=== PATIENT | female | born 1965 | race Caucasian/White ===

== ENCOUNTER → 2018-06-17 10:08 | Outpatient (CLI) | payer OTHER, SELFPAY ==
--- NOTE | 2018-06-17 | DI.MG.S_ITS ---
BILATERAL DIGITAL SCREENING MAMMOGRAM 3D/2D WITH CAD: 06/17/2018 CLINICAL: Routine screening. Family history of breast cancer. Comparison is made to exams dated: 11/27/2015 mammogram, 08/01/2014 mammogram, and 07/26/2014 mammogram - [facility]. The tissue of both breasts is predominantly fatty. Current study was also evaluated with a Computer Aided Detection (CAD) system. No significant masses, calcifications, or other findings are seen in either breast. There has been no significant interval change. IMPRESSION: NEGATIVE There is no mammographic evidence of malignancy. A 1 year screening mammogram is recommended. This exam was interpreted at Station ID: [id number]. NOTE: For mammograms, a report in lay terms will be sent to the patient. Approximately 15% of breast malignancies will not be visualized mammographically. In the management of a palpable breast mass, a negative mammogram must not discourage biopsy of a clinically suspicious lesion. Electronically Signed By: Steve morales/leo:06/17/2018 20:09:26 letter sent: Normal Exam ACR BI-RADS Category 1: Negative 3341F
[2018-06-17 12:19] LABS: Add Manual Diff / Slide Review NO; Basophils Percent Auto 0.1 % (0-2); Hematocrit 43.9 % (36-46); Hemoglobin 15.1 g/dL (12.0-16.0); Lymphocytes Percent Auto 38.2 % (25-40); Mean Corpuscular HGB Conc 34.3 % (30-36); Mean Corpuscular Hemoglobin 29.3 PG (26-34); Mean Corpuscular Volume 85.4 fL (80-100); Monocytes Percent Auto 6.7 % (3-14); Neutrophils Absolute Auto 2900 /uL (3000-5900); Platelet Count 177 X10^3/uL (150-400); Red Blood Cell Count 5.14 X10^6/uL (4.0-5.2); Red Cell Distribution Width 14.3 % (11.6-14.8); White Blood Cell Count 5.3 X10^3/uL (4.5-11.0)
[2018-06-17 17:18] LABS: Alanine Aminotransferase 75 IU/L (9-52); Albumin 4.3 g/dL (3.5-5.0); Albumin Globulin Ratio 1.5 (1.0-2.8); Alkaline Phosphatase 97 U/L (38-126); Aspartate Aminotransferase 55 IU/L (14-36); BUN Creatinine Ratio 22.9 (6-22); Bilirubin Total 0.6 mg/dL (0.2-1.3); Blood Urea Nitrogen 16 mg/dL (7-17); Calcium 9.1 mg/dL (8.4-10.2); Carbon Dioxide 26 mmol/L (22-32); Chloride 103 mmol/L (98-107); Cholesterol 197 mg/dL (140-199); Estimated Glomerular Filt Rate > 60.0 mL/min (>60); Globulin 2.8 g/dL (1.7-4.1); Glucose 106 mg/dL (70-100); HDL Cholesterol 64 mg/dL (40-60); HEMOLYSIS < 15 (0-50); LDL Cholesterol Calculated 112 mg/dL (<100); Potassium 4.4 mmol/L (3.4-5.1); Sodium 140 mmol/L (137-145); Total Protein 7.1 g/dL (6.3-8.2); Triglycerides 107 mg/dL (35-150)
== END ==
PROVIDERS: Family Provider Nurse Practitioner Family; PCP Nurse Practitioner Family; Visit Provider Nurse Practitioner Family
DX: Z12.31 Encounter for screening mammogram for malignant neoplasm of breast (principal); Z80.3 Family history of malignant neoplasm of breast; E78.00 Pure hypercholesterolemia, unspecified
CPT/HCPCS: 36415; 77063; 77067; 80053; 80061; 85025

== ENCOUNTER → 2019-10-26 15:38 | Outpatient (CLI) | payer OTHER, SELFPAY ==
--- NOTE | 2019-10-26 | DI.MG.S_ITS ---
BILATERAL DIGITAL SCREENING MAMMOGRAM 3D/2D WITH CAD: 10/26/2019 CLINICAL: Routine screening. Family history of breast cancer. Comparison is made to exams dated: 06/17/2018 mammogram - [facility], 11/27/2015 mammogram, and 08/01/2014 mammogram - [facility]. The tissue of both breasts is predominantly fatty. Current study was also evaluated with a Computer Aided Detection (CAD) system. There is an irregular low density focal asymmetry in the left breast at 4 o'clock anterior depth. No other significant masses, calcifications, or other findings are seen in either breast. IMPRESSION: INCOMPLETE: NEEDS ADDITIONAL IMAGING EVALUATION The irregular low density focal asymmetry in the left breast is indeterminate. Additional views with possible ultrasound are recommended. This exam was interpreted at Station ID: [id number]. NOTE: For mammograms, a report in lay terms will be sent to the patient. Approximately 15% of breast malignancies will not be visualized mammographically. In the management of a palpable breast mass, a negative mammogram must not discourage biopsy of a clinically suspicious lesion. Electronically Signed By: Yari becker/leo:10/26/2019 16:24:43 letter sent: Additional Imaging Needed ACR BI-RADS Category 0: Incomplete 3340F
== END ==
PROVIDERS: PCP Nurse Practitioner Family; Visit Provider Nurse Practitioner Family
DX: Z12.31 Encounter for screening mammogram for malignant neoplasm of breast (principal); Z80.3 Family history of malignant neoplasm of breast
CPT/HCPCS: 77063; 77067

== ENCOUNTER → 2019-11-19 07:51 | Outpatient (CLI) | payer OTHER, SELFPAY ==
--- NOTE | 2019-11-19 | DI.US.S_ITS ---
LIMITED ULTRASOUND OF LEFT BREAST: 11/19/2019 CLINICAL: Patient returns today to evaluate a focal asymmetry in the left breast. Comparison is made to exams dated: 11/19/2019 mammogram, 10/26/2019 mammogram, 06/17/2018 mammogram - [facility], 11/27/2015 mammogram, 07/26/2014 mammogram, and 05/05/2013 mammogram - [facility]. Color flow ultrasound of the left breast 2-5 o'clock region was performed. He scale images of the real-time examination were reviewed. No underlying breast mass or abnormality is identified. There is no ultrasound correlate for the previously identified irregular low density focal asymmetry in the left breast at 4 o'clock anterior depth on comparison screening mammograms of 10/26/19 which persisted but was less prominent with additional views performed earlier today 11/19/2019. IMPRESSION: PROBABLY BENIGN No ultrasound correlate for the irregular low density focal asymmetry in the left breast at 4 o'clock anterior depth seen on screening and diagnostic mammography. A follow-up mammogram and possible ultrasound in 6 months is recommended to demonstrate stability. These results and recommendations were discussed with the patient at the time of the exam by Dr. Carey by telephone. The patient was advised to monitor her breasts and to return sooner for re-evaluation should she feel anything grow or change. This exam was interpreted at Station ID: [id number]. Electronically Signed By: Steve Carey M.D. ecl/:11/19/2019 10:29:06 letter sent: Followup Recommended Ultrasound BI-RADS: 3 Probably benign
--- NOTE | 2019-11-19 | DI.MG.S_ITS ---
UNILATERAL LEFT DIGITAL DIAGNOSTIC MAMMOGRAM 3D/2D WITH ADDITIONAL VIEWS: 11/19/2019 CLINICAL: Additional evaluation requested from prior study. Comparison is made to exams dated: 07/26/2014 mammogram - [facility], 10/26/2019 mammogram, 06/17/2018 mammogram - [facility], and 11/27/2015 mammogram - [facility]. There are scattered fibroglandular elements in left breast. Previously identified irregular low density focal asymmetry in the left breast at 4 o'clock anterior depth on comparison screening mammograms of 10/26/19 persists but is less prominent with additional views. IMPRESSION: INCOMPLETE: NEEDS ADDITIONAL IMAGING EVALUATION Previously identified irregular low density focal asymmetry in the left breast at 4 o'clock anterior depth on comparison screening mammograms of 10/26/19 persists but is less prominent with additional views. A targeted ultrasound is recommended for further evaluation, and will be performed immediately following this exam. This exam was interpreted at Station ID: [id number]. NOTE: For mammograms, a report in lay terms will be sent to the patient. Approximately 15% of breast malignancies will not be visualized mammographically. In the management of a palpable breast mass, a negative mammogram must not discourage biopsy of a clinically suspicious lesion. Electronically Signed By: Steve Carey M.D. ecl/:11/19/2019 10:13:00 ACR BI-RADS Category 0: Incomplete 3340F
== END ==
PROVIDERS: PCP Nurse Practitioner Family; Visit Provider Nurse Practitioner Family
DX: R92.8 Other abnormal and inconclusive findings on diagnostic imaging of breast (principal); N64.89 Other specified disorders of breast
CPT/HCPCS: 76642; 77065; G0279

== ENCOUNTER → 2020-04-27 09:19 | Outpatient (CLI) | payer OTHER, SELFPAY ==
--- NOTE | 2020-04-27 09:21 | DI.MRI.S_ITS ---
PROCEDURE: MR LUMBAR SPINE WO CON INDICATIONS: right axial low back pain TECHNIQUE: Noncontrast sagittal T1 spin echo and T2 fast echo, sagittal STIR, axial T1 and T2 fast spin echo through the lumbar spine. In cases with scoliosis, additional coronal T2 fast spin echo may be performed. COMPARISON: None. FINDINGS: Image quality: Excellent. Alignment and Curvature: Trace anterolisthesis of L4 on L5. Bone Marrow: No fracture. Multilevel degenerative endplate sclerosis and spurring. Diffuse facet arthropathy. Spinal Cord: Conus medullaris terminates at the L1 level. Visualized cord demonstrates normal signal and size. Paraspinous Soft Tissues: No paravertebral masses. Subcentimeter poorly defined renal T2 hyperintensities, statistically small cysts, however technically too small to characterize accurately. L1-L2: Normal appearance. L2-L3: Normal appearance. L3-L4: Normal appearance. L4-L5: Mild dorsal epidural lipomatosis. Moderate canal stenosis. Partial effacement of both lateral recesses with bilaterally symmetric appearance. Minimal right foraminal narrowing. No left foraminal stenosis. L5-S1: Moderate canal narrowing in part due to circumferential epidural lipomatosis. Mild bilateral foraminal narrowing IMPRESSION: Lower lumbar spondylosis and facet arthropathy, with epidural lipomatosis at L4-L5 and L5-S1. No high-grade foraminal stenosis as above Trace anterolisthesis of L4 on L5. Dictated by: Jesse Triplett M.D. on 04/27/2020 at 12:03 Approved by: Jesse Triplett M.D. on 04/27/2020 at 12:09
== END ==
PROVIDERS: PCP Nurse Practitioner Family; Referring Provider Physical Medicine & Rehabilitation; Visit Provider Physical Medicine & Rehabilitation
DX: M54.5 Low back pain (principal); M47.27 Other spondylosis with radiculopathy, lumbosacral region; E88.2 Lipomatosis, not elsewhere classified
CPT/HCPCS: 72148

== ENCOUNTER → 2020-06-05 13:37 | Outpatient (CLI) | payer OTHER, SELFPAY ==
--- NOTE | 2020-06-05 | DI.MG.S_ITS ---
UNILATERAL LEFT DIGITAL DIAGNOSTIC MAMMOGRAM 3D/2D: 06/05/2020 CLINICAL: Patient returns for a 6 month follow up of the left breast. Comparison is made to exams dated: 11/19/2019 mammogram, 10/26/2019 mammogram, and 06/17/2018 mammogram - [facility]. The tissue of left breast is predominantly fatty. The previously described low density focal asymmetry in the left breast at 4 o'clock anterior depth appears less prominent and decreased in size. It was not seen on the prior ultrasound. No other significant masses or calcifications are seen in the breast. IMPRESSION: PROBABLY BENIGN The low density focal asymmetry in the left breast appears stable to less prominent and likely represents fibroglandular tissue. This is probably benign. A follow-up bilateral mammogram in 6 months is recommended to demonstrate stability. This exam was interpreted at Station ID: [id number]. NOTE: For mammograms, a report in lay terms will be sent to the patient. Approximately 15% of breast malignancies will not be visualized mammographically. In the management of a palpable breast mass, a negative mammogram must not discourage biopsy of a clinically suspicious lesion. Electronically Signed By: Edin garcia/:06/05/2020 14:21:29 letter sent: Followup Recommended ACR BI-RADS Category 3: Probably benign 3343F
== END ==
PROVIDERS: PCP Nurse Practitioner Family; Referring Provider Nurse Practitioner Family; Visit Provider Nurse Practitioner Family
DX: R92.8 Other abnormal and inconclusive findings on diagnostic imaging of breast (principal); N64.89 Other specified disorders of breast
CPT/HCPCS: 77065; G0279

== ENCOUNTER → 2020-06-17 10:22 | Outpatient (CLI) | payer OTHER, SELFPAY ==
[2020-06-19 21:02] LABS: COVID19 Sendout Not Detected (Not Detect)
== END ==
PROVIDERS: PCP Nurse Practitioner Family; Visit Provider Physician Assistant
DX: Z11.59 Encounter for screening for other viral diseases (principal)
CPT/HCPCS: 87635

== ENCOUNTER 2020-06-20 09:28 | Outpatient (CLI) | payer OTHER, SELFPAY ==
[2020-06-20] VITALS (7 sets, daily range): BP systolic 113–132; BP diastolic 81–93; PULSE 79–84; RESP 11–19; TEMP 36.7; O2SAT 94–99
--- NOTE | 2020-06-20 09:30 | DI.RAD.S_ITS ---
PROCEDURE: PAIN L/S FACET INJ/BLK 1ST LEWIS COMPARISON: [facility], MR, MR LUMBAR SPINE WO CON, 04/27/2020, 10:05. INDICATIONS: SPONDYLOSIS FINDINGS: On these intraprocedural images, spinal needles are seen at the L4-5 and L5-S1 levels on both sides, as labeled on the films. The appropriate location of the tips of the spinal needles is confirmed by injection of a small amount of iodinated contrast. IMPRESSION: Intraprocedural examination within normal limits. Dictated by: Miguel Vee M.D. on 06/20/2020 at 12:04 Approved by: Miguel Vee M.D. on 06/20/2020 at 12:05
[2020-06-20] MEDS: MIDAZOLAM 5 MG/5 ML VIAL IV (10:44)
[2020-06-20] MEDS: fentaNYL 100 MCG/2 ML INJ 50 MCG IV (10:45)
[2020-06-20] MEDS: BUPIVACAINE 0.5% (PF) VIAL 5 ML INJ (10:50)
[2020-06-20] MEDS: IOPAMIDOL 15 ML VIAL 3 ML INJ (10:50)
[2020-06-20] MEDS: BETAMETHASONE 30 MG/5 ML MDV 12 MG INJ (10:50)
[2020-06-20] MEDS: LIDOCAINE 1% 20 ML 10 ML INJ (10:50)
--- NOTE | 2020-06-20 10:59 | P.PCN_ITS ---
Date/Time/Diagnoses Date of procedure: 06/20/20 Time of procedure: 10:59 Pre-procedure diagnosis: 1. FACET ARTHROPATHY 2. AXIAL LBP 3. MULTILEVEL DDD Post-procedure diagnosis: same Procedure Notes Procedure: 1. FLUOROSCOPICALLY GUIDED CONTRAST CONTROLLED FACET JOINT INJECTIONS BILATERAL L4/5, L5/S1 Indications: Maria Antonia is referred by JAYDEN Epstein for treatment of Axial LBP Physician: Onofre Ventura Total Fluoroscopy time (seconds): 12 Total sedation minutes: 7 Complications: none Procedure in detail & Post-procedure care: FINDINGS Multilevel Facet Arthropathy with Clinically significant axial LBP DESCRIPTION OF PROCEDURE Fluoroscopically guided, contrast-controlled bilateral L4/5, L5/S1 facet joint injections. Following review of allergy and review of potential side effects and complications, including, but not necessarily limited to, infection, allergic reaction, local tissue breakdown, stroke, temporary or permanent nerve injury, paralysis, and possible , the patient indicated that the patient understood and agreed to proceed. An informed consent document was signed by the patient, witnessed by a nurse, and placed in the patient's chart. Additionally, other treatment options including medications, modalities, and physical therapy were reviewed with the patient. After review of previous anaesthesic history and IV conscious sedation the patient was deemed safe to proceed with today?s procedure with IV conscious sedation as ASA class II designation. Safety time-out was performed to confirm patient ID, procedure to be performed and site of procedure. IV sedation was accomplished with a combination of 5mg of Versed and 50mcg of Fentanyl was administered by the RN after DO order, titrated to patient comfort during the course of the procedure while the patient remained responsive to all verbal commands In the prone position, following sterile prep and drape of the lumbar region, the posterior aspect of the L4/5, L5/S1 facet joints were identified fluoroscopically. The skin was anesthetized via a 25-gauge 1.5-inch needle with 1% lidocaine solution into the corresponding facet joints. At this point, a 22- gauge 3.5-inch spinal needle was atraumatically introduced and advanced under fluoroscopic guidance into the corresponding facet joints. Following negative aspiration, injections of approximately 0.2cc of Isovue 200 confirmed int erarticular placement without vascular uptake. The identical procedure was then performed at the L4/5, L5/S1 facet joints on the left. Radiological data, including multiple fluoroscopic views of the lumbosacral spine, reveal a spinal needle at the L4/5, L5/S1 facet joints bilaterally. Subsequent views show flow of contrast material both superiorly and inferiorly within the joint space without vascular or intrathecal uptake. At this point, a total of 0.5cc including a mixture of 0.25cc Marcaine and 0.25cc betamethasone was injected without complication into each of the corresponding facet joints. The patient tolerated the procedure well without signs or symptoms of complications prior to transfer to the recovery area continued monitoring without incident. The patient was then transferred to the recovery area where they were observed for an appropriate period of time after the injection. The patient reported a VAS score of 7 prior to the procedure and a post- procedure VAS of 0. POST OP INSTRUCTIONS The patient was provided a Pain Log to continue to record their response to the target-specific procedure prior to follow-up visit with their referring physician. Additionally, specific post-injection care instructions and a contact number to our office were provided if concerns arise regarding possible complications associated with the procedure are suspected.
--- NOTE | 2020-06-20 16:00 | PC.NURSE ---
1057: pt tolerated procedure well, 2pa from table to wc, returned to pre proc room for observation
== END 2020-06-20 11:24 ==
LOC: RAD 09:30
PROVIDERS: PCP Nurse Practitioner Family; Referring Provider Physical Medicine & Rehabilitation; Visit Provider Physical Medicine & Rehabilitation
DX: M47.816 Spondylosis without myelopathy or radiculopathy, lumbar region (principal); M47.817 Spondylosis without myelopathy or radiculopathy, lumbosacral region; M54.5 Low back pain; M51.36 Other intervertebral disc degeneration, lumbar region; M51.37 Other intervertebral disc degeneration, lumbosacral region
CPT/HCPCS: 64493; 64494; 99152; J0702; J2250; J3010

== ENCOUNTER → 2020-07-19 13:46 | Outpatient (CLI) | payer OTHER, SELFPAY ==
--- NOTE | 2020-07-19 13:48 | DI.RAD.S_ITS ---
PROCEDURE: XR HIP W PEL IF DONE RT 2V INDICATIONS: hip pain TECHNIQUE: AP view of the pelvis and frogleg lateral view of the right hip. COMPARISON: None. FINDINGS: Bones: No acute fractures or dislocations. Pelvic ring appears intact. No suspicious bony lesions. Portions of the sacrum and coccyx are obscured by overlying bowel gas. Soft tissues: The visualized bowel gas pattern is normal. No suspicious soft tissue calcifications. The distal portion of a ventriculoperitoneal shunt catheter is seen projecting over the abdomen. IMPRESSION: No acute osseous abnormality. Dictated by: Matt Granados M.D. on 07/19/2020 at 14:03 Approved by: Matt Granados M.D. on 07/19/2020 at 14:06
== END ==
PROVIDERS: PCP Nurse Practitioner Family; Referring Provider Physical Medicine & Rehabilitation; Visit Provider Physical Medicine & Rehabilitation
DX: M25.551 Pain in right hip (principal); M47.816 Spondylosis without myelopathy or radiculopathy, lumbar region; M70.61 Trochanteric bursitis, right hip; E66.9 Obesity, unspecified; Z68.41 Body mass index [BMI] 40.0-44.9, adult
CPT/HCPCS: 20611; 73502; J0702

== ENCOUNTER → 2020-09-05 08:53 | Outpatient (CLI) | payer OTHER, SELFPAY ==
[2020-09-05 11:00] LABS: Hemoglobin A1C% w Est Avg Glu 7.3 % (4.0-6.0)
[2020-09-05 11:14] LABS: Alanine Aminotransferase 61 IU/L (<35); Albumin 4.2 g/dL (3.5-5.0); Albumin Globulin Ratio 1.6 (1.0-2.8); Alkaline Phosphatase 101 U/L (38-126); Aspartate Aminotransferase 45 IU/L (14-36); BUN Creatinine Ratio 22.4 (6-22); Bilirubin Total 0.5 mg/dL (0.2-1.3); Blood Urea Nitrogen 15 mg/dL (7-17); Calcium 9.1 mg/dL (8.4-10.2); Carbon Dioxide 32 mmol/L (22-32); Chloride 101 mmol/L (98-107); Cholesterol 175 mg/dL (140-199); Estimated Glomerular Filt Rate > 60.0 mL/min (>60); Globulin 2.6 g/dL (1.7-4.1); Glucose 143 mg/dL (70-100); HDL Cholesterol 53 mg/dL (40-60); HEMOLYSIS < 15 (0-50); LDL Cholesterol Calculated 105 mg/dL (<100); Potassium 3.8 mmol/L (3.4-5.1); Sodium 139 mmol/L (137-145); Total Protein 6.8 g/dL (6.3-8.2); Triglycerides 87 mg/dL (35-150)
== END ==
PROVIDERS: PCP Nurse Practitioner Family; Referring Provider Nurse Practitioner Family; Visit Provider Nurse Practitioner Family
DX: E11.9 Type 2 diabetes mellitus without complications (principal); E78.00 Pure hypercholesterolemia, unspecified
CPT/HCPCS: 36415; 80053; 80061; 83036

== ENCOUNTER → 2020-12-08 09:12 | Outpatient (CLI) | payer OTHER, SELFPAY ==
--- NOTE | 2020-12-08 | DI.MG.S_ITS ---
BILATERAL DIGITAL DIAGNOSTIC MAMMOGRAM 3D/2D: 12/08/2020 CLINICAL: Short term follow up of the left breast, due for bilateral imaging. Comparison is made to exams dated: 06/05/2020 mammogram, 11/19/2019 mammogram, 10/26/2019 mammogram, and 06/17/2018 mammogram - [facility]. There are scattered fibroglandular elements in both breasts. There is a benign oval low density focal asymmetry with an indistinct margin in the left breast at 3 o'clock in the retroareolar region. This is not significantly changed compared to prior studies. Given stability for over 2 years, findings are consistent with a benign process. No other significant masses, calcifications, or other findings are seen in either breast. IMPRESSION: BENIGN There is no mammographic evidence of malignancy. A 1 year screening mammogram is recommended. This exam was interpreted at Station ID: [id number]. NOTE: For mammograms, a report in lay terms will be sent to the patient. Approximately 15% of breast malignancies will not be visualized mammographically. In the management of a palpable breast mass, a negative mammogram must not discourage biopsy of a clinically suspicious lesion. Electronically Signed By: Ludwig Triana M.D. ddmeliza/:12/08/2020 10:06:43 letter sent: Normal Exam ACR BI-RADS Category 2: Benign Finding(s) 3342F
== END ==
PROVIDERS: PCP Nurse Practitioner Family; Referring Provider Nurse Practitioner Family; Visit Provider Nurse Practitioner Family
DX: R92.8 Other abnormal and inconclusive findings on diagnostic imaging of breast (principal); N64.89 Other specified disorders of breast
CPT/HCPCS: 77066; G0279

== ENCOUNTER → 2022-01-25 14:28 | Outpatient (CLI) | payer OTHER, SELFPAY ==
--- NOTE | 2022-01-25 | DI.MG.S_ITS ---
BILATERAL DIGITAL SCREENING MAMMOGRAM 3D/2D WITH CAD: 01/25/2022 CLINICAL: Routine screening. Comparison is made to exams dated: 12/08/2020 mammogram, 10/26/2019 mammogram, and 06/17/2018 mammogram - [facility]. There are scattered fibroglandular elements in both breasts. Current study was also evaluated with a Computer Aided Detection (CAD) system. There are mole markers on the right breast. There is a mole marker on the left breast. No significant masses, calcifications, or other findings are seen in either breast. There has been no significant interval change. IMPRESSION: NEGATIVE There is no mammographic evidence of malignancy. A 1 year screening mammogram is recommended. This exam was interpreted at Station ID: [id number]. NOTE: For mammograms, a report in lay terms will be sent to the patient. Approximately 15% of breast malignancies will not be visualized mammographically. In the management of a palpable breast mass, a negative mammogram must not discourage biopsy of a clinically suspicious lesion. Electronically Signed By: Kristopher Felix acr/ramonrad:01/25/2022 15:04:20 letter sent: Normal Exam ACR BI-RADS Category 1: Negative 3341F
== END ==
PROVIDERS: PCP Nurse Practitioner Family; Referring Provider Nurse Practitioner Family; Visit Provider Nurse Practitioner Family
DX: Z12.31 Encounter for screening mammogram for malignant neoplasm of breast (principal)
CPT/HCPCS: 77063; 77067

== ENCOUNTER 2022-04-29 16:01 | Emergency (ER) | payer OTHER, SELFPAY ==
[2022-04-29 16:03] VITALS: BP 146/88; PULSE 82; RESP 18; TEMP 36.6; O2SAT 100
--- NOTE | 2022-04-29 16:13 | DI.RAD.S_ITS ---
PROCEDURE: XR SHOULDER RT MIN 2V INDICATIONS: fall TECHNIQUE: 3 views of the right shoulder were obtained COMPARISON: None. FINDINGS: Bones: No fractures or dislocations. No suspicious bony lesions. Visualized ribs appear intact. Prior resection the distal right clavicle present. Soft tissues: No suspicious soft tissue calcifications. Ventriculoperitoneal shunt catheter present. IMPRESSION: No acute fracture or foreign body Dictated by: Josef Hamilton M.D. on 04/29/2022 at 16:00 Approved by: Josef Hamilton M.D. on 04/29/2022 at 16:01
--- NOTE | 2022-04-29 16:13 | DI.CT.S_ITS ---
PROCEDURE: CT HEAD/BRAIN WO CON INDICATIONS: Trauma, fall, shunt TECHNIQUE: Noncontrast 4.5 mm thick angled axial sections acquired from the foramen magnum to the vertex, with coronal and sagittal reformats. For radiation dose reduction, the following was used: automated exposure control, adjustment of mA and/or kV according to patient size. COMPARISON: [facility], CT, CT HEAD WITHOUT CONTRAST, 01/28/2020, 15:58. FINDINGS: Right trans parietal ventriculostomy terminates at the roof of the 3rd ventricle similar to the prior study. Ventricular caliber is not significantly changed when compared with 01/28/2020 exam. The shunt tubing appears intact where visualized. The basilar cisterns are patent. There is no evidence of mass effect or midline shift. No acute intracranial hemorrhage or abnormal extra-axial fluid collection. He-white matter differentiation is maintained. No significant orbital abnormality. Paranasal sinuses and mastoid air cells are clear. IMPRESSION: No acute intracranial abnormality. Ventricular caliber and shunt position are unchanged from January 2020 exam. Dictated by: Shahab Girard M.D. on 04/29/2022 at 16:55 Approved by: Shahab Girard M.D. on 04/29/2022 at 16:58
--- NOTE | 2022-04-29 16:13 | DI.RAD.S_ITS ---
PROCEDURE: XR RIBS RT MIN 3V W CXR 1V INDICATIONS: fall TECHNIQUE: 3 views of the right ribs were acquired, along with a single view chest. COMPARISON: None. FINDINGS: Surgical changes and devices: Presumed SEWER AND CUTTER FINGER BUFF MATERIAL shunt is noted. Cholecystectomy clips. Bones and chest wall: No fractures or dislocations. No suspicious bony lesions. Overlying soft tissues appear unremarkable. Lungs and pleura: No pleural effusions or pneumothorax. Lungs appear clear. Mediastinum: Mediastinal contours appear normal. Heart size is normal. IMPRESSION: No visualized acute fracture or dislocation. However, if clinical concern and/or pain persist, short interval imaging followup in 7-10 days is recommended, as occult injury cannot be definitively excluded. Dictated by: Rachelle Gay M.D. on 04/29/2022 at 17:12 Approved by: Rachelle Gay M.D. on 04/29/2022 at 17:16
[2022-04-29 18:30] VITALS: BP 138/78; PULSE 77; RESP 16; O2SAT 99
--- NOTE | 2022-04-29 20:19 | ED_ITS ---
HPI - Head Injury General Chief complaint: Head Injury Stated complaint: FALL HIT HEAD Time Seen by Provider: 04/29/22 20:10 Source: patient and family Mode of arrival: Wheelchair History of Present Illness HPI Narrative: 56-year-old female who is here for evaluation of injuries that she sustained after she tripped over a raise piece of cement in the sidewalk. She fell forward. She did hit her head on the ground. She thinks she lost conscious for very short period of time. Script up both of her knees and also injured her right arm and shoulder. She is also having discomfort in her right ribs. Denies neck pain. Not on blood thinners. Has not tried anything for the symptoms prior to arrival. Related Data Home Medications Medication Instructions Recorded Confirmed cetirizine 10 mg tablet (Aller-Yossi) 10 mg PO DAILY 05/10/19 07/06/21 cholecalciferol (vitamin D3) PO DAILY 05/10/19 07/06/21 hydrochlorothiazide 25 mg tablet 25 mg PO DAILY 05/10/19 07/06/21 losartan 25 mg tablet 25 mg PO DAILY 05/10/19 07/06/21 venlafaxine 150 mg 150 mg PO DAILY 05/10/19 07/06/21 capsule,extended release 24 hr Respironics Dreamstation CPAP #1 ea 07/21/19 07/06/21 ascorbic acid (vitamin C) PO DAILY 04/19/20 07/06/21 magnesium PO DAILY 04/19/20 07/06/21 omeprazole 20 mg capsule,delayed 20 mg PO DAILY 07/19/20 07/06/21 release metformin 500 mg tablet 500 mg PO BID 07/06/21 07/06/21 rosuvastatin 40 mg tablet 40 mg PO DAILY 07/06/21 07/06/21 Previous Rx's Medication Instructions Recorded tramadol 50 mg tablet 50 mg PO BID PRN pain #30 tabs 08/21/20 celecoxib 200 mg capsule See Rx Instructions .Route 10/17/20 .COMPLEX #30 caps cyclobenzaprine 10 mg tablet See Rx Instructions .Route 08/17/21 .COMPLEX #60 tabs Allergies Allergy/AdvReac Type Severity Reaction Status Date / Time NSAIDS (Non-Steroidal AdvReac Verified 04/29/22 16:07 Anti-Inflamma Review of Systems Constitutional Constitutional: Reports system reviewed and no additional complaints, except as documented Eyes Eyes: Reports system reviewed and no additional complaints, except as documented Cardiovascular Cardiovascular: Reports system reviewed and no additional complaints, except as documented Respiratory Respiratory: Reports system reviewed and no additional complaints, except as documented Gastrointestinal Gastrointestinal: Reports system reviewed and no additional complaints, except as documented Musculoskeletal Musculoskeletal: Reports system reviewed and no additional complaints, except as documented Integumentary/Breasts Skin/Breast: Reports system reviewed and no additional complaints, except as documented Neurologic Neurologic: Reports system reviewed and no additional complaints, except as documented Hematologic/Lymphatic On Anticoagulants: No Allergic/Immunologic Allergic/Immunologic: Reports system reviewed and no additional complaints, except as documented Patient History Medical History Cerebral cysts Degenerative joint disease (DJD) of hip Facet arthropathy, lumbar Greater trochanteric bursitis of right hip Hydrocephalus in adult Hypertension Lumbosacral spondylosis with radiculopathy 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) Morbid obesity with body mass index (BMI) of 40.0 to 49.9 Obesity (BMI 30-39.9) Obstructive sleep apnea Restless legs syndrome (RLS) Surgical History H/O laparoscopic adjustable gastric banding (~09/25/15) Family History Mother Hypertension Diverticulitis Father Hypertension Heart disease Back pain Social History Smoking Status: Never smoker Smoking Status: Never smoker Exam Initial Vital Signs Initial Vital Signs: Vital Signs Temperature 97.9 F 04/29/22 16:03 Pulse Rate 82 04/29/22 16:03 Respiratory Rate 18 04/29/22 16:03 Blood Pressure 146/88 H 04/29/22 16:03 Pulse Oximetry 100 04/29/22 16:03 Oxygen Delivery Method 04/29/22 16:03 Const General: cooperative, comfortable and well developed HENPR Head: normal to inspection and normocephalic Chest Chest: No crepitus and tenderness (Right side lower ribs lateral) Resp Effort & Inspection: normal respiratory effort Auscultation: clear to auscultation bilaterally Cardio Rate: regular rate Rhythm: regular rhythm GI Inspection: normal to inspection Skin Other: Superficial abrasions on both of her knees. Abrasion over the right elbow. Neuro General: patient alert, patient awake, patient oriented x3 and moves all extremities Extrem Other: Abrasions over both knees. Full range of motion of knees and hips and elbows and shoulders Psych Appearance: grossly normal and well kempt Scores GCS Rupa coma scale eye opening: Spontaneous [place] coma scale verbal response: Orientated [place] coma scale motor response: Obey commands [place] coma scale total score: 15 Course Orders Ordered: Discontinued Medications Hydrocodone Bitart/Acetaminophen (Hydrocodone/Acet 5/325 Prepack) 1 bottle MISC SEEINSTR ONE Stop: 04/29/22 20:24 Last Admin: 04/29/22 20:33 Dose: 1 bottle Documented By: CTS Bacitracin (Bacitracin Oint 0.9 Gm Pckt) 1 applic TOP NOW ONE Stop: 04/29/22 20:21 Last Admin: 04/29/22 20:33 Dose: 1 applic Documented By: CTS Vital Signs Vital signs: Vital Signs - 8 hr 04/29/22 18:30 Pulse Rate 77 Respiratory Rate 16 Blood Pressure 138/78 Pulse Oximetry 99 Oxygen Delivery Method Room Air MDM - Head Injury Imaging Data CT scan - head: Radiologist's Impression: [place] [address] CT Scan Report Signed Patient: Maria Antonia Gusman MR#: [id number] : 1965 Acct:[id number] Age/Sex: 56 / F Date of Service: 04/29/22 Loc: ED Accession Number: [id number] ?? Procedure: CT head/brain wo con Ordering Provider: Reyna Suarez D.O. PROCEDURE:? CT HEAD/BRAIN WO CON ? INDICATIONS:? Trauma, fall, shunt ? TECHNIQUE:? Noncontrast 4.5 mm thick angled axial sections acquired from the foramen magnum to the vertex, with coronal and sagittal reformats.? For radiation dose reduction, the following was used:? automated exposure control, adjustment of mA and/or kV according to patient size.? ? COMPARISON:? [facility], CT, CT HEAD WITHOUT CONTRAST, 01/28/2020, 15:58. ? FINDINGS:? Right trans parietal ventriculostomy terminates at the roof of the 3rd ventricle similar to the prior study.? Ventricular caliber is not significantly changed when compared with 01/28/2020 exam.? The shunt tubing appears intact where visualized.? The basilar cisterns are patent.? There is no evidence of mass effect or midline shift.? No acute intracranial hemorrhage or abnormal extra-axial fluid collection.? He-white matter differe ntiation is maintained.? No significant orbital abnormality.? Paranasal sinuses and mastoid air cells are clear. ? IMPRESSION:? No acute intracranial abnormality.? Ventricular caliber and shunt position are unchanged from January 2020 exam. ? ? Dictated by: Shahab Girard M.D. on 04/29/2022 at 16:55 ? ? Approved by: Shahab Girard M.D. on 04/29/2022 at 16:58?? rib xray: Radiologist's Impression: [address] [address] XRay Report Signed Patient: Maria Antonia Gusman MR#: [id number] : 1965 Acct:[id number] Age/Sex: 56 / F Date of Service: 04/29/22 Loc: ED Accession Number: [id number] ?? Procedure: XR ribs RT min 3V w CXR1V Ordering Provider: Reyna Suarez D.O. PROCEDURE:? XR RIBS RT MIN 3V W CXR 1V ? INDICATIONS:? fall ? TECHNIQUE:? 3 views of the right ribs were acquired, along with a single view chest.? ? COMPARISON:? None. ? FINDINGS:? ? Surgical changes and devices:? 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 Cholecystectomy clips. ? Bones and chest wall:? No fractures or dislocations.? No suspicious bony lesions.? Overlying soft tissues appear unremarkable.? ? Lungs and pleura:? No pleural effusions or pneumothorax.? Lungs appear clear.? ? Mediastinum:? Mediastinal contours appear normal.? Heart size is normal.? ? IMPRESSION:? No visualized acute fracture or dislocation. However, if clinical concern and/or pain persist, short interval imaging followup in 7-10 days is recom mended, as occult injury cannot be definitively excluded. ? Dictated by: Rachelle Gay M.D. on 04/29/2022 at 17:12 ? ? Approved by: Rachelle Gay M.D. on 04/29/2022 at 17:16?? Extremity x-ray #1: Radiologist's Impression: [address] [address] XRay Report Signed Patient: Maria Antonia Gusman MR#: [id number] : 1965 Acct:[id number] Age/Sex: 56 / F Date of Service: 04/29/22 Loc: ED Accession Number: [id number] ?? Procedure: XR shoulder RT min 2V Ordering Provider: Reyna Suarez D.O. PROCEDURE:? XR SHOULDER RT MIN 2V ? INDICATIONS:? fall ? TECHNIQUE:? 3 views of the right shoulder were obtained ? COMPARISON:? None. ? FINDINGS:? ? Bones:? No fractures or dislocations.? No suspicious bony lesions.? Visualized ribs appear intact.? Prior resection the distal right clavicle present. ? Soft tissues:? No suspicious soft tissue calcifications.? Ventriculoperitoneal shunt catheter present. ? IMPRESSION:? No acute fracture or foreign body ? ? Dictated by: Josef Hamilton M.D. on 04/29/2022 at 16:00 ? ? Approved by: Josef Hamilton M.D. on 04/29/2022 at 16:01?? [facility] Narrative Medical decision making narrative: X-rays unremarkable. The abrasions over her knees need no intervention other than cleaning and topical antibiotic ointment here in the ER. This was a mechanical fall she tripped over a raised piece of cement in the sidewalk. I did discuss the findings of the radiologic studies with her. No further workup required in the emergency department. She was given return precautions. She expressed understanding and agreement. Discharge Plan Departure Patient Disposition: Home Clinical Impression: Closed head injury, Contusion of ribs, Abrasion of skin, Contusion of skin Instructions: DI for Closed Head Injury Activity Restrictions/Additional Instructions: You can take Tylenol or ibuprofen for any pain. You can shower like normal. You can eat and sleep like normal. Contact your primary doctor for a follow-up. Return to the emergency department for any new or worsening symptoms. Prescriptions: No Action tramadol 50 mg tablet 50 mg PO BID PRN (Reason: pain) Qty: 30 1RF celecoxib 200 mg capsule See Rx Instructions .ROUTE .COMPLEX Qty: 30 3RF Dose Instruction: TAKE 1 CAPSULE BY MOUTH DAILY DIRECTED. Rx Instructions: TAKE 1 CAPSULE BY MOUTH DAILY DIRECTED. cyclobenzaprine 10 mg tablet See Rx Instructions .ROUTE .COMPLEX Qty: 60 4RF Dose Instruction: TAKE 1 TABLET BY MOUTH TWICE DAILY NEEDED FOR MUSCLE SPASM. Rx Instructions: TAKE 1 TABLET BY MOUTH TWICE DAILY NEEDED FOR MUSCLE SPASM. ascorbic acid (vitamin C) PO DAILY magnesium PO DAILY omeprazole 20 mg capsule,delayed release(DR/EC) 20 mg PO DAILY cetirizine [Aller-Yossi] 10 mg tablet 10 mg PO DAILY venlafaxine 150 mg capsule,extended release 24hr 150 mg PO DAILY losartan 25 mg tablet 25 mg PO DAILY hydrochlorothiazide 25 mg tablet 25 mg PO DAILY cholecalciferol (vitamin D3) PO DAILY (DME) [employer] Dreamstation CPAP Qty: 1 Label Comments: Pressure: 6-14 cmH2O DME: [employer] Rx Instructions: As directed rosuvastatin 40 mg tablet 40 mg PO DAILY metformin 500 mg tablet 500 mg PO BID Referrals: Manasa West ARNP [Primary Care Provider] - Visit Report Forms: Patient Portal/API
[2022-04-29] MEDS: HYDROCODONE/ACET 5/325 PREPACK 1 BOTTLE MISC (20:33)
[2022-04-29] MEDS: BACITRACIN OINT 0.9 GM PCKT 1 APPLIC TOP (20:33)
== END 2022-04-29 20:51 | disposition home or self-care (01) ==
PROVIDERS: Emergency Provider Emergency Medicine; PCP Nurse Practitioner Family
DX: S09.90XA Unspecified injury of head, initial encounter (principal); R07.81 Pleurodynia; S20.211A Contusion of right front wall of thorax, initial encounter; S80.212A Abrasion, left knee, initial encounter; S80.211A Abrasion, right knee, initial encounter; S50.311A Abrasion of right elbow, initial encounter; W10.1XXA Fall (on)(from) sidewalk curb, initial encounter
CPT/HCPCS: 70450; 71101; 73030; 99283; 99284

== ENCOUNTER → 2023-06-30 09:32 | Outpatient (CLI) | payer OTHER, SELFPAY ==
--- NOTE | 2023-06-30 | DI.MG.S_ITS ---
BILATERAL DIGITAL SCREENING MAMMOGRAM 3D/2D WITH CAD: 06/30/2023 CLINICAL: Routine screening. Family history of breast cancer. Comparison is made to exams dated: 01/25/2022 mammogram, 12/08/2020 mammogram, 06/05/2020 mammogram, 11/19/2019 mammogram, and 10/26/2019 mammogram - [facility]. There are scattered areas of fibroglandular density in both breasts (category b / 25%-50% glandular tissue). Current study was also evaluated with a Computer Aided Detection (CAD) system. No significant masses, calcifications, or other findings are seen in either breast. There has been no significant interval change. IMPRESSION: NEGATIVE There is no mammographic evidence of malignancy. A 1 year screening mammogram is recommended. Based on the Tyrer Cuzick model (a risk assessment model) the patient's lifetime risk is 6.3% and her 10 year risk is 2.5%. According to the ACR, ACS, and NCCN guidelines, an annual breast MRI exam along with mammogram is recommended if the patient's lifetime risk is 20% or greater. This exam was interpreted at Station ID: [id number]. NOTE: For mammograms, a report in lay terms will be sent to the patient. Approximately 15% of breast malignancies will not be visualized mammographically. In the management of a palpable breast mass, a negative mammogram must not discourage biopsy of a clinically suspicious lesion. Electronically Signed By: Yari becker/leo:06/30/2023 10:13:50 letter sent: Normal Exam ACR BI-RADS Category 1: Negative [id number]
== END ==
PROVIDERS: PCP Registered Nurse; Referring Provider Registered Nurse; Visit Provider Registered Nurse
DX: Z12.31 Encounter for screening mammogram for malignant neoplasm of breast (principal); Z80.3 Family history of malignant neoplasm of breast
CPT/HCPCS: 77063; 77067

== ENCOUNTER 2024-06-06 12:57 | Emergency (ER) | payer OTHER, SELFPAY ==
--- NOTE | 2024-06-06 13:07 | ED_ITS ---
HPI - Extremity Injury (Lower) General Chief Complaint: Extremity Injury, Lower Stated Complaint: Fall, Left knee pain Time Seen by Provider: 06/06/24 12:58 History of Present Illness HPI Narrative: 58-year-old female presents by EMS for left knee injury. Patient [place] began to be skittish. She attempted to dismount but fell, twisting her knee, subsequently landing backwards and striking her head. Denies loss of consciousness or use of blood thinners. She states that she tried numerous times to get but was unable to bear any weight and so she called 911. Related Data Home Medications Medication Instructions Recorded Confirmed cetirizine 10 mg tablet (Aller-Yossi) 10 mg PO DAILY 05/10/19 05/17/22 cholecalciferol (vitamin D3) PO DAILY 05/10/19 05/17/22 hydrochlorothiazide 25 mg tablet 25 mg PO DAILY 05/10/19 05/17/22 losartan 25 mg tablet 25 mg PO DAILY 05/10/19 05/17/22 venlafaxine 150 mg 150 mg PO DAILY 05/10/19 05/17/22 capsule,extended release 24 hr Respironics Dreamstation CPAP #1 ea 07/21/19 05/17/22 ascorbic acid (vitamin C) PO DAILY 04/19/20 05/17/22 magnesium PO DAILY 04/19/20 05/17/22 omeprazole 20 mg capsule,delayed 20 mg PO DAILY 07/19/20 05/17/22 release metformin 500 mg tablet 500 mg PO BID 07/06/21 05/17/22 rosuvastatin 40 mg tablet 40 mg PO DAILY 07/06/21 05/17/22 Previous Rx's Medication Instructions Recorded tramadol 50 mg tablet 50 mg PO BID PRN pain #30 tabs 08/21/20 celecoxib 200 mg capsule See Rx Instructions .Route 10/17/20 .COMPLEX #30 caps hydroxyzine HCl 50 mg tablet 50 mg PO BID PRN Hives #14 tabs 05/17/22 cyclobenzaprine 10 mg tablet See Rx Instructions .Route 12/26/23 .COMPLEX #60 tabs tramadol 50 mg tablet 50 mg PO Q8H PRN pain #10 tabs 06/06/24 Allergies Allergy/AdvReac Type Severity Reaction Status Date / Time NSAIDS (Non-Steroidal AdvReac Verified 05/17/22 09:53 Anti-Inflamma Patient History 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) Obesity (BMI 30-39.9) Morbid obesity with body mass index (BMI) of 40.0 to 49.9 Cerebral cysts Greater trochanteric bursitis of right hip Degenerative joint disease (DJD) of hip Hydrocephalus in adult Lumbosacral spondylosis with radiculopathy Facet arthropathy, lumbar Restless legs syndrome (RLS) Obstructive sleep apnea Hypertension Surgical History H/O laparoscopic adjustable gastric banding (~09/25/15) Family History Mother Hypertension Diverticulitis Father Hypertension Heart disease Back pain Social History Smoking Status: Never smoker Smoking Status: Never smoker Exam Initial Vital Signs Initial Vital Signs: Vital Signs Temperature 98.7 F 06/06/24 13:11 Pulse Rate 73 06/06/24 13:11 Respiratory Rate 18 06/06/24 13:11 Blood Pressure 149/71 H 06/06/24 13:11 Pulse Oximetry 100 06/06/24 13:11 Oxygen Delivery Method Room Air 06/06/24 13:11 Const: Awake, alert, no acute distress, nontoxic appearing MSK: No deformity, bruising along lateral knee, range of motion decreased due to pain, pulses intact, sensation intact Skin: Warm, Dry, intact, no rashes Neuro: AO x3, CN II-XII grossly intact, moves all extremities Course Orders Ordered: Discontinued Medications Hydrocodone Bitart/Acetaminophen (Hydrocodone/Acet 5/325 Tablet) 1 tab PO NOW ONE Stop: 06/06/24 13:12 Last Admin: 06/06/24 13:47 Dose: 1 tab Documented By: AILYN Vital Signs Vital signs: Vital Signs - 8 hr 06/06/24 13:11 Temperature 98.7 F Pulse Rate 73 Respiratory Rate 18 Blood Pressure 149/71 H Pulse Oximetry 100 Oxygen Delivery Method Room Air MDM - Extremity Injury (Lower) Differential Diagnosis Differential diagnosis: Likely acute internal derangement of knee, fracture of femur and fracture of hip Imaging Data Extremity x-ray #1: Radiologist's Impression: PROCEDURE: XR KNEE LT 3V INDICATIONS: FALL FROM HORSE, L KNEE PAIN TECHNIQUE: 3 views of the knee were acquired. COMPARISON: None. FINDINGS: Bones: No fractures or dislocations. Mild tricompartmental osteoarthritis is seen. No significant patellar subluxation. No suspicious bony lesions. Soft tissues: Small to moderate suprapatellar joint effusion. No suspicious soft tissue calcifications. IMPRESSION: No acute left knee fracture or dislocation. Mild tricompartmental osteoarthritis and small to moderate suprapatellar joint effusion. Dictated by: Vahe Murphy M.D. on 06/06/2024 at 13:47 Approved by: Vahe Murphy M.D. on 06/06/2024 at 13:48 MDM Narrative Medical decision making narrative: Fall from horse with left knee pain. Denies other areas of pain. Patient did have minor head impact, however she was not on blood thinners, has no loss of consciousness, does not meet criteria for advanced imaging at this time per nexus and [facility] head CT rules as well as overall benign exam. X-rays show no acute fracture. Suspect possible ligamentous injury due to area of pain and the nature of the fall. Patient placed in knee immobilizer, given crutches. Pain medication sent to pharmacy of choice. Orthopedic follow up recommended. Discharge Plan Departure Patient Disposition: Home Clinical Impression: Knee sprain Qualifiers: Encounter type: initial encounter Involved ligament of knee: unspecified ligament Laterality: left Qualified Code(s): S83.92XA - Sprain of unspecified site of left knee, initial encounter Fall from horse Qualifiers: Encounter type: initial encounter Qualified Code(s): V80.010A - Animal-rider injured by fall from or being thrown from horse in noncollision accident, initial encounter Instructions: DI for Knee Sprain Activity Restrictions/Additional Instructions: YOUR X-RAYS TODAY DID NOT SHOW ANY SIGNS OF ACUTE FRACTURE. I SUSPECT A TENDON OR LIGAMENT INJURY BASED ON YOUR EXAM AND NORMAL X-RAYS. TAKE TYLENOL AND IBUPROFEN AT HOME FOR PAIN. A SHORT COURSE OF PAIN MEDICATION HAS BEEN SENT TO YOUR PHARMACY. WEAR THE KNEE IMMOBILIZER AND USE THE CRUTCHES TO HELP YOU GET AROUND. FOLLOW UP WITH ORTHOPEDIC SURGERY FOR FURTHER EVALUATION OF YOUR KNEE PAIN. Prescriptions: New tramadol 50 mg tablet 50 mg PO Q8H PRN (Reason: pain) Qty: 10 0RF No Action hydroxyzine HCl 50 mg tablet 50 mg PO BID PRN (Reason: Hives) Qty: 14 0RF tramadol 50 mg tablet 50 mg PO BID PRN (Reason: pain) Qty: 30 1RF celecoxib 200 mg capsule See Rx Instructions .ROUTE .COMPLEX Qty: 30 3RF Dose Instruction: TAKE 1 CAPSULE BY MOUTH DAILY DIRECTED. Rx Instructions: TAKE 1 CAPSULE BY MOUTH DAILY DIRECTED. cyclobenzaprine 10 mg tablet See Rx Instructions .ROUTE .COMPLEX Qty: 60 4RF Dose Instruction: TAKE 1 TABLET BY MOUTH TWICE DAILY NEEDED FOR MUSCLE SPASM. Rx Instructions: TAKE 1 TABLET BY MOUTH TWICE DAILY NEEDED FOR MUSCLE SPASM. ascorbic acid (vitamin C) PO DAILY magnesium PO DAILY omeprazole 20 mg capsule,delayed release(DR/EC) 20 mg PO DAILY cetirizine [Aller-Yossi] 10 mg tablet 10 mg PO DAILY venlafaxine 150 mg capsule,extended release 24hr 150 mg PO DAILY losartan 25 mg tablet 25 mg PO DAILY hydrochlorothiazide 25 mg tablet 25 mg PO DAILY cholecalciferol (vitamin D3) PO DAILY (DME) [employer] Dreamstation CPAP Qty: 1 Patient Comments: Pressure: 6-14 cmH2O DME: [employer] Rx Instructions: As directed rosuvastatin 40 mg tablet 40 mg PO DAILY metformin 500 mg tablet 500 mg PO BID Referrals: Junior Browne MD [Physician] - Katy Huitron ARNP [Primary Care Provider] - Stand Alone Forms: Patient Portal/API
[2024-06-06 13:11] VITALS: BP 149/71; PULSE 73; RESP 18; TEMP 37.1; O2SAT 100
[2024-06-06] MEDS: HYDROCODONE/ACET 5/325 TABLET 1 TAB PO (13:47)
== END 2024-06-06 14:20 | disposition home or self-care (01) ==
PROVIDERS: Emergency Provider Emergency Medicine; PCP Registered Nurse
DX: S83.92XA Sprain of unspecified site of left knee, initial encounter (principal); S09.90XA Unspecified injury of head, initial encounter; V80.010A Animal-rider injured by fall from or being thrown from horse in noncollision accident, initial encounter
CPT/HCPCS: 73562; 99283

== ENCOUNTER → 2024-06-15 16:08 | Outpatient (CLI) | payer OTHER, SELFPAY ==
--- NOTE | 2024-06-15 16:09 | DI.MRI.S_ITS ---
PROCEDURE: MR KNEE LT WO CON INDICATIONS: LEFT KNEE INTERNAL DERANGEMENT TECHNIQUE: Noncontrast sagittal PD fast spin echo and T2 fast spin echo with fat saturation, sagittal 3-D FLASH with fat saturation; coronal T1 spin echo and PD fast spin echo with fat saturation, and axial PD fast spin echo with fat saturation through the knee. COMPARISON: [facility], CR, XR KNEE LT 3V, 06/06/2024, 13:08. FINDINGS: Image quality: Excellent. Menisci: The medial and lateral menisci demonstrate normal morphology and internal signal. The meniscal root ligaments appear intact. Cruciate ligaments: There is suggestion of full-thickness ACL rupture near its femoral insertion. The PCL is intact. Medial structures: Full-thickness rupture of medial collateral ligament in its midportion is seen with extensive surrounding edema and fluid. Visualized portions of the pes anserinus tendons appear normal. No abnormal bursal fluid. Lateral structures: The lateral collateral ligament is markedly thickened with intrasubstance T2 hyperintense signal particularly near its femoral insertion. The long and short heads of the biceps femoris tendon appear intact. The popliteus tendon appears thickened with intrasubstance T2 hyperintense signal extending to musculotendinous junction. Iliotibial band appears normal. Anterior structures: The quadriceps and patellar tendons appear intact. Slight lateral subluxation of patella is seen. Bones and cartilage: There is marrow edema involving posterior aspect of proximal tibia extending to posterior aspect of lateral tibial plateau with subtle linear hypointense signal and cortical irregularity concerning for nondisplaced fracture in this area. There is also mild marrow edema involving inferior and medial aspect of patella near patellofemoral ligament insertion site. No discrete fracture line is seen. Sive-[id number] tricompartmental chondromalacia is seen. Joint space: There is moderate joint effusion. No Gooden's cyst. Normal appearing synovial plicae are incidentally noted. IMPRESSION: 1. Full-thickness ACL rupture at its femoral insertion. The PCL is intact. 2. Full-thickness rupture of MCL in its midportion. 3. Low to moderate grade LCL sprain/partial-thickness tear. 4. Low-grade partial-thickness tear involving popliteus tendon extending to musculotendinous junction. 5. Suggestion of incomplete fracture involving posterior and lateral portion of proximal tibia extending to posterior aspect of lateral tibial plateau. Contusion involving inferior and medial aspect of patella. 6. Mild tricompartmental osteoarthritis and low-grade chondromalacia. Moderate joint effusion, no loose bodies. 7. No evidence of focal meniscal tear. Dictated by: Vahe Murphy M.D. on 06/15/2024 at 19:03 Approved by: Vahe Murphy M.D. on 06/15/2024 at 19:07
== END ==
PROVIDERS: PCP Registered Nurse; Referring Provider Physician Assistant; Visit Provider Physician Assistant
DX: S83.512A Sprain of anterior cruciate ligament of left knee, initial encounter (principal); S83.412A Sprain of medial collateral ligament of left knee, initial encounter; S83.422A Sprain of lateral collateral ligament of left knee, initial encounter; S76.812A Strain of other specified muscles, fascia and tendons at thigh level, left thigh, initial encounter; S80.02XA Contusion of left knee, initial encounter; M17.12 Unilateral primary osteoarthritis, left knee; M94.262 Chondromalacia, left knee; M23.92 Unspecified internal derangement of left knee
CPT/HCPCS: 73721

== ENCOUNTER → 2024-09-10 14:09 | Outpatient (CLI) | payer OTHER, SELFPAY ==
--- NOTE | 2024-09-10 | DI.MG.S_ITS ---
BILATERAL DIGITAL SCREENING MAMMOGRAM 3D/2D WITH CAD: 09/10/2024 CLINICAL: Routine screening. Family history of breast cancer. Comparison is made to exams dated: 06/30/2023 mammogram, 01/25/2022 mammogram, 12/08/2020 mammogram, 11/19/2019 mammogram, 10/26/2019 mammogram, and 06/05/2020 mammogram - [facility]. There are scattered areas of fibroglandular density (category b / 25%-50% glandular tissue). Current study was also evaluated with a Computer Aided Detection (CAD) system. No significant masses, calcifications, or other findings are seen in either breast. There has been no significant interval change. IMPRESSION: NEGATIVE There is no mammographic evidence of malignancy. A 1 year screening mammogram is recommended. Based on the Tyrer Cuzick model (a risk assessment model) the patient's lifetime risk is 6.2% and her 10 year risk is 2.6%. According to the ACR, ACS, and NCCN guidelines, an annual breast MRI exam along with mammogram is recommended if the patient's lifetime risk is 20% or greater. This exam was interpreted at Station ID: [id number]. NOTE: For mammograms, a report in lay terms will be sent to the patient. Approximately 15% of breast malignancies will not be visualized mammographically. In the management of a palpable breast mass, a negative mammogram must not discourage biopsy of a clinically suspicious lesion. Electronically Signed By: Kody [email or web address]:09/10/2024 17:23:54 letter sent: Normal Exam ACR BI-RADS Category 1: Negative
== END ==
PROVIDERS: PCP Registered Nurse; Referring Provider Registered Nurse; Visit Provider Registered Nurse
DX: Z12.31 Encounter for screening mammogram for malignant neoplasm of breast (principal); Z80.3 Family history of malignant neoplasm of breast
CPT/HCPCS: 77063; 77067

== ENCOUNTER → 2025-01-30 11:00 | Outpatient (CLI) | payer OTHER, SELFPAY ==
--- NOTE | 2025-01-30 | DI.RAD.S_ITS ---
PROCEDURE: XR ABDOMEN 1V INDICATIONS: SHUNT SERIES TECHNIQUE: One view of the abdomen acquired. COMPARISON: [facility], CR, XR SKULL<4V, 01/30/2025, 11:20. CT, CT HEAD WITHOUT CONTRAST, 01/28/2020, 15:58. FINDINGS: Surgical changes and devices: Shunt tubing is noted coursing overlying the right hemiabdomen to the right pelvis. Tubing appears intact. Bowel: Bowel gas pattern is normal. Moderate colonic stool. Soft tissues: No suspicious abdominal calcifications. Visualized solid organ contours appear normal in size. Bones: No suspicious bony lesions. 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 Dictated by: Rachelle Gay M.D. on 01/30/2025 at 14:18 Approved by: Rachelle Gay M.D. on 01/30/2025 at 14:18
--- NOTE | 2025-01-30 | DI.RAD.S_ITS ---
PROCEDURE: XR SKULL<4V INDICATIONS: SHUNT SERIES TECHNIQUE: 1 view(s) of the skull acquired. COMPARISON: None. FINDINGS: Bones: No fractures. No suspicious bony lesions. Visualized sinuses appear clear. Soft tissues: No soft tissue calcifications. No suspicious soft tissue densities. The be shunt tubing is noted overlying the right frontal calvarium and coursing to overlie the right neck and upper right hemithorax. All tubing appears intact. 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 Dictated by: Rachelle Gay M.D. on 01/30/2025 at 14:19 Approved by: Rachelle Gay M.D. on 01/30/2025 at 14:20
--- NOTE | 2025-01-30 | DI.RAD.S_ITS ---
PROCEDURE: XR CHEST 1V INDICATIONS: SHUNT SERIES TECHNIQUE: One view of the chest was acquired. COMPARISON: [facility], CR, XR SKULL<4V, 01/30/2025, 11:20. FINDINGS: Surgical changes and devices: INSPECTOR FABRIC shunt tubing overlying the right neck, right hemithorax and right upper abdomen. Cholecystectomy clips. Lungs and pleura: Lungs are clear. No pleural effusions or pneumothorax. Mediastinum: Mediastinal contours appear normal. Heart size is normal. Bones and chest wall: No suspicious bony lesions. Overlying soft tissues appear unremarkable. IMPRESSION: Intact INSPECTOR FABRIC shunt tubing as above. Dictated by: Rachelle Gay M.D. on 01/30/2025 at 14:18 Approved by: Rachelle Gay M.D. on 01/30/2025 at 14:19
--- NOTE | 2025-01-30 11:02 | DI.MRI.S_ITS ---
PROCEDURE: MR HEAD/BRAIN WO CON INDICATIONS: headache TECHNIQUE: Noncontrast axial T1 spin echo, axial T2 fast spin echo, sagittal and axial FLAIR, coronal T2 fast spin echo, axial gradient echo, axial diffusion and ADC through the brain. COMPARISON: [facility], CT, CT HEAD/BRAIN WO CON, 04/29/2022, 16:36. FINDINGS: Image quality: Excellent. CSF Spaces: Basal cisterns are patent. No extra-axial fluid collections. Ventricles are normal in size and shape. Brain: No intracranial masses or hemorrhage. He/white matter interface is normal. Susan and brainstem demonstrate multifocal areas of CSF signal. It appears relatively unchanged and most consistent with prior areas of ischemia Scattered areas of periventricular and subcortical white matter hyperintensities are present. Diffusion-weighted images demonstrate no acute infarct. . Normal intravascular flow voids are present. Skull and face: Calvarium has normal marrow signal. Orbits appear normal. Sinuses: Scattered mild pansinus mucosal thickening. IMPRESSION: 1. No acute intracranial process. 2. Scattered areas of periventricular and subcortical white matter hyperintensities are present likely related to chronic microvascular ischemia. . Dictated by: Rachelle Gay M.D. on 01/31/2025 at 10:14 Approved by: Rachelle Gay M.D. on 01/31/2025 at 10:32
== END ==
PROVIDERS: PCP Registered Nurse; Referring Provider Family Medicine; Visit Provider Family Medicine
DX: G91.1 Obstructive hydrocephalus (principal); G93.0 Cerebral cysts; Z98.2 Presence of cerebrospinal fluid drainage device; Z90.49 Acquired absence of other specified parts of digestive tract
CPT/HCPCS: 70250; 70551; 71045; 74018

== ENCOUNTER → 2025-03-11 13:06 | Outpatient (CLI) | payer OTHER, SELFPAY ==
--- NOTE | 2025-03-11 13:13 | DI.RAD.S_ITS ---
PROCEDURE: XR LUMBAR SPINE 2-3V INDICATIONS: Low back pain, unspecified TECHNIQUE: 3 views of the lumbar spine were acquired. COMPARISON: None. FINDINGS: Bones: 5 [id number] vertebrae are present. Anterolisthesis of L4 on L5 measures 0.9 cm. There is otherwise normal bony alignment. Multilevel anterior osteophytosis throughout the upper lumbar spine and thoracolumbar junction. No vertebral body compression fractures. No suspicious bony lesions. Soft tissues: Overlying bowel gas pattern is normal. Right ureteral stent and right upper quadrant surgical clips. No suspicious soft tissue calcifications. IMPRESSION: Mild degenerative change of the lumbar spine including anterolisthesis of L4 on L5 without evidence of acute osseous abnormality. Dictated by: Shade Vazquez M.D. on 03/12/2025 at 22:47 Approved by: Shade Vazquez M.D. on 03/12/2025 at 22:53
== END ==
PROVIDERS: PCP Registered Nurse; Referring Provider Registered Nurse; Visit Provider Registered Nurse
DX: M47.816 Spondylosis without myelopathy or radiculopathy, lumbar region (principal); M43.16 Spondylolisthesis, lumbar region; M54.50 Low back pain, unspecified
CPT/HCPCS: 72100